=== PATIENT | male | born 1960 | race Caucasian/White ===

== ENCOUNTER → 2017-11-16 | Outpatient (CLI) | payer OTHER ==
[2017-11-16 17:59] LABS: BLOOD UREA NITROGEN 17 mg/dl (7-18); CALCIUM 9.2 mg/dl (8.5-10.1); CARBON DIOXIDE 28 mmol/L (21-32); CREATININE 1.09 mg/dl (0.60-1.40); GLUCOSE 93 mg/dl (70-99); POTASSIUM 3.8 mmol/L (3.5-5.1); SODIUM 139 mmol/L (136-145)
[2017-11-17 07:52] LABS: HEMOGLOBIN A1C 5.3 % (4.5-5.6)
== END | disposition home or self-care (01) ==
LOC: C.LABPVFM 14:49
PROVIDERS: ATTEND Family Medicine
DX: Z13.1 Encounter for screening for diabetes mellitus (principal)

== ENCOUNTER → 2018-07-03 | Day surgery (SDC) | payer OTHER ==
[2018-06-25 12:03] VITALS: Ht 193 cm; Wt 138.2 kg
[~2018-07-03] VITALS: Ht 193 cm; Wt 138.2 kg
[~2018-07-03] MED LIST: LIDOCAINE HCL 2% 2 ML VIAL (20MG/ML) ONE; MIDAZOLAM HCL 1 MG/ML 2ML VIAL ONE; ONDANSETRON INJ 2 MG/ML 2 ML VIAL ONE; PROPOFOL IV EMULSION 10 MG/ML 20 ML VIAL ONE; SODIUM CHLORIDE 0.9% 500ML 500 ML IV ONE
--- NOTE | 2018-07-03 13:13 | Endo History and Physical ---
History & Physical Date of Service: Jul 03, 2018. Chief Complaint: Screening Referring Physician: Ilana Burgess History of Present Illness 57 yo CM who presents for screening colonoscopy. Past Surgical History Hx Cardiac Surgery: No Hx Internal Defibrillator: No Hx Pacemaker: No Hx Abdominal Surgery: Yes (HERNIA REPAIR) Hx of Implantable Prosthesis: No Hx Post-Op Nausea and Vomiting: No Hx Cancer Surgery: No Hx Thoracic Surgery: No Hx Orthopedic: Yes (R TKA) Hx Urinary Tract Surgery: No Family History Polyp Social History Smoking Status: Former Smoker Hx Substance Use: No Hx Alcohol Use: Yes (A SIX PACK A MONTH) Allergies Coded Allergies: Aspirin (Unverified Allergy, Severe, ANAPHYLAXIS, 07/03/18) NSAIDs (Verified Allergy, Severe, ANAPHYLAXIS, 07/03/18) Current Medications Reported Home Medications Medications Dose Route/Sig Max Daily Dose Days Date Category Patient States No Home Meds (Miscellaneous) . 07/09/10 Reported Vital Signs Weight (Kilograms): 138.18 Height (Feet): 6 Height (Inches): 4 Physical Exam General Appearance: WD/WN, no apparent distress Respiratory/Chest: Auscultation: breath sounds normal Cardiovascular: Heart Auscultation: RRR Abdomen: Bowel Sounds: normal Inspection & Palpation: soft, non-distended, no tenderness, guarding & rebound Assessment and Plan Assessment: 57 yo CM who presents for screening colonoscopy. Plan: Proceed with colonoscopy.
--- NOTE | 2018-07-03 14:01 | Discharge Instructions ---
Endoscopy Patient Instructions Date / Procedure(s) Performed Jul 03, 2018. Colonoscopy Allergy Information Coded Allergies: Aspirin (Unverified Allergy, Severe, ANAPHYLAXIS, 07/03/18) NSAIDs (Verified Allergy, Severe, ANAPHYLAXIS, 07/03/18) Discharge Date / Findings Jul 03, 2018. Internal hemorrhoids Medication Instructions OK to resume all medications today as prescribed Reported Home Medications Medications Dose Route/Sig Max Daily Dose Days Date Category Patient States No Home Meds (Miscellaneous) . 07/09/10 Reported Provider Instructions Activity Restrictions - No exercising or heavy lifting for 24 hours. - Do not drink alcohol the day of the procedure. - Do not drive a car or operate machinery until the day after the procedure. - Do not make any important decisions or sign important papers in 24 hours after the procedure. Following Day: - Return to full activity which may include returning to work/school. Diet Start your diet with liquids and light foods (jello, soup, juice, toast). Then eat your usual diet if not nauseated. Treatment For Common After Affects For mild abdominal pain, bloating, or excessive gas: - Rest - Eat lightly - Lie on right side Follow-Up Information Follow-up with Dr. Burgess as scheduled Anesthesia Information What You Should Know You have had a procedure that required some medicine to reduce anxiety and discomfort. This treatment is called moderate sedation. After receiving the treatment, you may be sleepy, but you will be able to breathe on your own. The effects of the treatment may last for several hours. Follow these instructions along with Activity/Diet recommendations noted above: * Do NOT do anything where dizziness or clumsiness would be dangerous. * Rest quietly at home today, then you can be up and about tomorrow. * Have a responsible person stay with you the rest of today. * You may have had an I.V. today. If so, you may take the dressing off later today. Recommendations Call your doctor if: * Trouble breathing * Continuous vomiting for more than 24 hours * Temperature above 101 degrees * Severe abdominal pain or bloating * Pain not relieved by pain medicine ordered * There is increased drainage or redness from any incision * A large amount of rectal bleeding greater than 2-3 tablespoons. (If you had a polyp/s removed or have hemorrhoids, a small amount of blood - from the rectum is to be expected.) * You have any unanswered questions or concerns. IN THE EVENT OF A SERIOUS EMERGENCY, GO TO THE NEAREST EMERGENCY ROOM Your discharge instructions were prepared by provider Pavel Witt. Patient Instructions Signature Page Kike Edgar Patient (or Guardian) Signature/Date: I have read and understand the instructions given to me by my caregivers. Caregiver/RN/Doctor Signature/Date: The above-named patient and/or guardian has received patient instructions on this date. + Original Patient Signature Page (only) stays with chart. Please make copy for patient.
--- NOTE | 2018-07-03 14:06 | GI REPORT ---
Patient Name: Kike Edgar Procedure Date: 07/03/2018 1:42 PM Date of : 1960 Admit Type: Outpatient Age: 57 Gender: Male Attending MD: Pavel Witt DO Procedure: Colonoscopy Providers: Pavel Witt DO Referring MD: Partha Gonzales M.d. Indications: Screening for colorectal malignant neoplasm Medicines: Monitored Anesthesia Care Complications: No immediate complications. Estimated Blood Loss: Estimated blood loss: none. Procedure: Pre-Anesthesia Assessment: - Prior to the procedure, a History and Physical was performed, and patient medications and allergies were reviewed. The patient's tolerance of previous anesthesia was also reviewed. The risks and benefits of the procedure and the sedation options and risks were discussed with the patient. All questions were answered, and informed consent was obtained. Prior Anticoagulants: The patient has taken no previous anticoagulant or antiplatelet agents. ASA Grade Assessment: II - A patient with mild systemic disease. After reviewing the risks and benefits, the patient was deemed in satisfactory condition to undergo the procedure. After I obtained informed consent, the scope was passed under direct vision. Throughout the procedure, the patient's blood pressure, pulse, and oxygen saturations were monitored continuously. The scope was introduced through the anus and advanced to the terminal ileum. The colonoscopy was performed without difficulty. The patient tolerated the procedure well. The quality of the bowel preparation was good. The terminal ileum, ileocecal valve, appendiceal orifice, and rectum were photographed. Findings: The perianal and digital rectal examinations were normal. Non-bleeding internal hemorrhoids were found during retroflexion. The hemorrhoids were small. Impression: - Non-bleeding internal hemorrhoids. - No specimens collected. Recommendation: - Resume previous diet. - Continue present medications. - Repeat colonoscopy in 10 years for surveillance. - Return to primary care physician as previously scheduled. Pavel Witt DO 07/03/2018 2:06:19 PM This report has been signed electronically. Note Initiated On: 07/03/2018 1:42 PM Number of Addenda: 0 I attest to the content of the Intraoperative Record and orders documented therein, exceptions below {[id number]}
--- NOTE | 2018-07-03 14:14 | Anesthesiology Progress Note ---
Anesthesia Post Op Note Date & Time Jul 03, 2018 at 14:14 Vital Signs Pain Intensity: 0 Vital Signs Past 12 Hours Date Time Temp Pulse Resp B/P (MAP) Pulse Ox O2 Delivery O2 Flow Rate FiO2 07/03/18 14:02 36.5 68 16 110/62 (78) 96 Room Air 07/03/18 13:35 162/97 (118) 07/03/18 13:33 36.8 77 20 150/101 (117) 97 Room Air Notes Mental Status: alert / awake / arousable, participated in evaluation Pt Amnestic to Procedure: Yes Nausea / Vomiting: adequately controlled Pain: adequately controlled Airway Patency, RR, SpO2: stable & adequate BP & HR: stable & adequate Hydration State: stable & adequate Anesthetic Complications: no major complications apparent
[2018-07-03 14:31] VITALS: BP 122/81; PULSE 69; O2SAT 96
== END | disposition home or self-care (01) ==
LOC: C.GI 12:59
PROVIDERS: ATTEND Internal Medicine
DX: Z12.11 Encounter for screening for malignant neoplasm of colon (principal); M19.90 Unspecified osteoarthritis, unspecified site; K64.8 Other hemorrhoids; Z96.651 Presence of right artificial knee joint; Z87.891 Personal history of nicotine dependence; Z88.6 Allergy status to analgesic agent

== ENCOUNTER 2021-03-31 19:30 | Observation (INO) ==
[2021-03-31] MEDS ORDERED: SODIUM CHLORIDE 0.9% 1000ML 2,000 ML IV ONE (20:02)
[2021-03-31] MEDS ORDERED: ONDANSETRON INJ 2 MG/ML 2 ML VIAL IV STA (20:03)
[2021-03-31] MEDS ORDERED: FAMOTIDINE 20MG IV PUSH 20 MG/5 ML SYR IV STA (20:03)
[2021-03-31] MEDS ORDERED: ACETAMINOPHEN 1,000 MG/100 ML VIAL IV STA (20:03)
[2021-03-31 20:17] LABS: Basophils # (auto) 0.01 K/uL (0-0.2); Basophils % (auto) 0.1 %; Eosinophils # (auto) 0.03 K/uL (0-0.5); Eosinophils % (auto) 0.3 %; Hematocrit (blood only) 40.5 % (42-52); Hemoglobin 14.2 g/dL (14.0-18.0); Immature Granulocytes # (auto) 0.02 K/uL (0.00-0.02); Immature Granulocytes % (auto) 0.2 %; Lymphocytes # (auto) 0.37 K/uL (1.2-3.4); Lymphocytes % (auto) 4.2 %; Mean Corpuscular Hemoglobin 31.9 pg (25-34); Mean Corpuscular Hgb Conc 35.1 g/dL (32-36); Mean Platelet Volume 9.3 fL (7.4-10.4); Monocytes # (auto) 0.42 K/uL (0.11-0.59); Monocytes % (auto) 4.7 %; Neutrophils # (auto) 8.04 K/uL (1.4-6.5); Neutrophils % (auto) 90.5 %; Platelet Count 152 K/uL (130-400); RDW Coefficient of Variation 14.1 % (11.5-14.5); RDW Standard Deviation 47.2 fL (36.4-46.3); Red Blood Count 4.45 M/uL (4.7-6.1); White Blood Count 8.89 K/uL (4.8-10.8)
[2021-03-31 20:36] LABS: Alanine Aminotransferase 28 U/L (12-78); Albumin Level 3.9 gm/dl (3.4-5.0); Aspartate Aminotransferase 16 U/L (15-37); BUN Creatinine Ratio 17.4 (10-20); Bilirubin Direct 0.3 mg/dl (0-0.2); Blood Urea Nitrogen 20 mg/dl (7-18); Calcium 8.9 mg/dl (8.5-10.1); Carbon Dioxide 22 mmol/L (21-32); Chloride 105 mmol/L (98-107); Creatinine Clr Calc Pharmacy 109.3 ml/min; Est GFR (Non-African American) 70.8 ml/min; Glucose 134 mg/dl (70-99); Lipase 94 U/L (73-393); Potassium 4.2 mmol/L (3.5-5.1); Sodium 135 mmol/L (136-145)
--- NOTE | 2021-03-31 20:47 | Emergency Department Note ---
Impression & Plan Syncope, Bradycardia, Gastroenteritis, Hypophosphatemia ED Provider Note NAME: GILLIAN SCHWARZ AGE: 60 SEX: M ARRIVES VIA: Ambulance INFORMANT: Patient, ED PROVIDER(S): Alex Cunningham MD CHIEF COMPLAINT: Syncope PLAN: Disposition: Admit MEDICAL DECISION MAKING: The patient is a pleasant 60-year-old gentleman with a past medical history of hypertension who presents emergency department via EMS after having 2 syncopal episodes in the setting of his report of feeling nauseated with abdominal cramping when getting home from work today and had some mild loose stool and nausea and then began to feel lightheaded and passed out waking on the floor where he was able to get up and move himself to the couch but upon arrival of EMS he began to feel nauseated again and passed out sitting on the couch noted to have heart rate in the to the 30s that recovered after a minute or so and upon EMS sternal rub. Per EMS report the patient felt nauseated again en route and again had transient bradycardia into the 30s that resolved spontaneously. Prior today the patient denies any chest pain, shortness of breath, urinary symptoms. Patient denies any known COVID-19 exposures. On arrival the patient is fatigued/ill-appearing but no acute distress, afebrile stable vital signs. His O2 saturation was noted to be 89% upon arrival and was placed on 2 L nasal cannula. He appears clinically dry. He has no focal logic deficits. He has minor contusion to the occipital scalp without significant underlying hematoma. There is no bony crepitus. He has mild paraspinal muscle discomfort of the neck without any midline CTL spine tenderness to palpation or step-offs. Abdomen with generalized abdominal discomfort but no discrete tenderness. EKG without overt acute ischemia. WBC, hemoglobin and platelets within normal limits. Chemistry without metabolic acidosis. BUN 20, consistent with the patient's clinical dry appearance. Phosphorus 1.2 with repletion initiated. Electrolytes otherwise without significant abnormality. Total bilirubin 1.2 with direct bilirubin 0.3, nonspecific. LFTs otherwise unremarkable. Lipase is not elevated. Troponin negative/undetectable. COVID-19 PCR was negative. Per preliminary stat rad report: CT of the head, C-spine negative for acute traumatic process. CTA of the chest negative for dissection or acute process otherwise. CT of the abdomen and pelvis notes findings consistent with diar rheal illness. Otherwise no acute process. Upon reevaluation the patient did feel improved after IV fluid hydration with 2L NSS, Pepcid, Zofran. However, still feeling weak and blood pressure soft 9 0s/50s., Given the patient's repeat syncopal episodes which are likely vasovagal in the setting still being mildly symptomatic reasonable to admit the patient for continued IV fluid hydration and monitoring. The patient was agreement with this plan. Case was discussed with Dr. Valadez, [facility] hospitalist, who will evaluate the patient for admission. Triage Nursing notes reviewed and agree them. Prior medical records reviewed Vital Signs: reviewed and remarkable for low blood pressure. Differential diagnosis: Vasovagal event, dehydration, infection, hypoglycemia, electrolyte abnormalities, cardiac sources, intracerebral event, pulmonary embolism, seizure, toxicologic, neurologic, as well as other pathologies. ER treatment provided: See below. Diagnostics interpreted by me: ECG: Normal sinus rhythm, 71 bpm, no ectopy, no overt ST elevation or depression, QTC 473, QRS 108. Cardiac Monitoring: An order for continuous cardiac monitoring was placed and demonstrated normal sinus rhythm, 71 bpm, no ectopy. Laboratory studies: See below Imaging studies: See below [facility] Preliminary Findings Only See Final Report For Complete Findings CT HEAD: No acute intracranial process. Radiologist: Sandip Pringle M.D. Study ready at 21:46 and initial results transmitted at 22:05 -- Preliminary Findings Only See Final Report For Complete Findings CT C SPINE: No fracture Radiologist: Sandip Pringle M.D. Study ready at 21:47 and initial results transmitted at 22:06 -- Preliminary Findings Only See Final Report For Complete Findings CTA CHEST: No PE or aortic dissection. No acute pulmonary infiltrate. Mild dependent atelectasis. Suspected coronary atherosclerosis. Radiologist: Sandip Pringle M.D. Study ready at 21:53 and initial results transmitted at 22:25 -- Preliminary Findings Only See Final Report For Complete Findings CT ABDOMEN & PELVIS With Contrast: Liquid distal colonic contents suggesting diarrheal illness. No bowel obstruction or perforation. Unremarkable appendix. Moderately distended gallbladder. Layering density could reflect sludge or small stones. No pericholecystic inflammatory changes. No biliary ductal dilation. Multiple hepatic cyst and hypodensities that are too small to characterize. Nonspecific bilateral perinephric stranding. No hydronephrosis. Fat-containing umbilical and right inguinal hernias. Radiologist: Sandip Pringle M.D. Study ready at 21:57 and initial results transmitted at 22:27 Consultation(s): Case was discussed with Dr. Valadez, [facility] hospitalist, who will evaluate the patient for admission. HPI: The patient is a pleasant 60-year-old gentleman with a past medical history of hypertension who presents emergency department via EMS after having 2 syncopal episodes in the setting of his report of feeling nauseated with abdominal cramping when getting home from work today and had some mild loose stool and nausea and then began to feel lightheaded and passed out waking on the floor where he was able to get up and move himself to the couch but upon arrival of EMS he began to feel nauseated again and passed out sitting on the couch noted to have heart rate in the to the 30s that recovered after a minute or so and upon EMS sternal rub. Per EMS report the patient felt nauseated again in route and again had transient bradycardia into the 30s that resolved spontaneously. Prior today the patient denies any chest pain, shortness of breath, urinary symptoms. Patient denies any known COVID-19 exposures. ROS: See above HPI for pertinent positives & negatives. A total of 10 systems reviewed and were otherwise negative. PAST MEDICAL HISTORY:See Below PAST SURGICAL HISTORY:See Below FAMILY HISTORY:See Below SOCIAL HISTORY:See Below HOME MEDICATIONS:See Below ALLERGIES:See Below VITALS:See Below PHYSICAL EXAMINATION: GENERAL: Awake, alert, fatigued/ill-appearing, in no distress HENT: Normocephalic, 3cm occipital scalp contusion. Oropharynx with dry mucous membranes and otherwise unremarkable. EYES: Normal conjunctiva. Sclera non-icteric. EOMI. No nystamgus. PEARRL. NECK: Supple. No nuchal rigidity. FROM. No JVD. RESPIRATORY: Clear to auscultation. CARDIAC: Regular rate, normal rhythm. Extremities warm and well perfused. Pulses equal. ABDOMEN: Soft, non-distended. BS hyperactive. Generalized abdominal discomfort without discrete tenderness. No rebound or guarding. No masses. RECTAL: Deferred. MUSCULOSKELETAL: Chest examination reveals no tenderness. The back is symmetrical on inspection without obvious abnormality. There is no CVA tenderness to palpation. No joint edema. LOWER EXTREMITIES: Calves are equal size bilaterally and non-tender. No edema. No discoloration. NEURO: Normal sensorium. No sensory or motor deficits noted. 5/5 strength and SILT x 4 extremities. Cerebellar function intact including [id number], alternating palms, [id number]. SKIN: No rash or jaundice noted. PHYSICAL Critical Care: I have personally spent greater than 35 minutes of critical care time in the direct management of this patient. This includes bedside care, interpretation of diagnostic studies, and testing, discussion with consultants, patient, and family members, and other required patient management activities. This 35 minutes is in excess of all separately billable procedures. Alex Cunningham MD Past Med/Surg History Medical History Arthritis Hypertension Impaired fasting glucose Obesity Surgical History History of hernia repair History of torn meniscus of right knee Repair Family History Father Myocardial infarction Denies family history of Ovarian cancer Prostate cancer Breast cancer Colorectal cancer Social History Smoking Status: Former smoker Smoking End Date: 1996; Number of Years Since Quit: 20; Second Hand Exposure: No; Hx Alcohol Use: Yes Alcohol type: beer, wine and hard liquor Alcohol Intake Frequency: 2-4 x/Month Alcohol Intake Frequency Comment: One drink a week Hx Substance Use: No Preferred Language: [place] Communication Ability: Effective 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 Beliefs That Will Affect Care: None marital status: Current Living Situation: Spouse current occupational status: employed Feels Safe at Home: Yes Safety Concerns: Feels Safe At This Time caffeine: Yes Dental Care, Regularly: Yes Physical Activity Frequency: Other Physical Activity Frequency Comment: Occasional exercise Seatbelt Use: always Sunscreen Use: No Assistive Devices: Glasses Allergies Allergies Allergy/AdvReac Type Severity Reaction Status Date / Time aspirin Allergy Severe ANAPHYLAXIS Unverified 03/31/21 21:58 NSAIDS (Non-Steroidal Allergy Severe ANAPHYLAXIS Verified 03/31/21 21:58 Anti-Inflamma Home Meds Previous Rx's Medication Instructions Recorded lisinopril 10 mg tablet 10 mg PO DAILY #30 tab 02/04/21 Results & Data (ED) Vital Signs Vital Signs - 24 hr 03/31/21 19:37 03/31/21 19:44 03/31/21 19:47 Temperature 37.0 C Temperature Source Oral Pulse Rate 67 Pulse Rate from SpO2 Sensor Pulse Rhythm Regular Pulse Strength Normal Respiratory Rate 18 Respiratory Effort / Characteristics Non-Labored Respiratory Depth Normal Respiratory Pattern Regular Blood Pressure 103/64 Blood Pressure Mean 77 Blood Pressure Position Sitting Pulse Oximetry 98 84 L Oxygen Delivery Method Room Air Room Air Room Air Oxygen Flow Rate Sepsis Recent Fever Within 48 Hours No Sepsis New/Unexplained Change in Mental Status No Sepsis Action Taken by Nursing No Action Required 03/31/21 19:50 03/31/21 19:54 03/31/21 20:30 Temperature Temperature Source Pulse Rate 80 Pulse Rate from SpO2 Sensor 81 Pulse Rhythm Pulse Strength Respiratory Rate 23 Respiratory Effort / Characteristics Respiratory Depth Respiratory Pattern Blood Pressure 112/65 Blood Pressure Mean 80 Blood Pressure Position Pulse Oximetry 94 100 99 Oxygen Delivery Method Nasal Cannula Nasal Cannula Oxygen Flow Rate 2 2 Sepsis Recent Fever Within 48 Hours Sepsis New/Unexplained Change in Mental Status Sepsis Action Taken by Nursing 03/31/21 20:40 03/31/21 20:45 03/31/21 20:46 Temperature Temperature Source Pulse Rate 78 78 80 Pulse Rate from SpO2 Sensor 80 79 80 Pulse Rhythm Pulse Strength Respiratory Rate 24 18 18 Respiratory Effort / Characteristics Respiratory Depth Respiratory Pattern Blood Pressure 122/68 Blood Pressure Mean 86 Blood Pressure Position Pulse Oximetry 99 99 98 Oxygen Delivery Method Oxygen Flow Rate Sepsis Recent Fever Within 48 Hours Sepsis New/Unexplained Change in Mental Status Sepsis Action Taken by Nursing 03/31/21 21:00 03/31/21 21:01 03/31/21 21:15 Temperature Temperature Source Pulse Rate 73 73 Pulse Rate from SpO2 Sensor 74 73 Pulse Rhythm Pulse Strength Respiratory Rate 17 22 Respiratory Effort / Characteristics Respiratory Depth Respiratory Pattern Blood Pressure 112/69 106/65 Blood Pressure Mean 83 78 Blood Pressure Position Pulse Oximetry 100 100 Oxygen Delivery Method Oxygen Flow Rate Sepsis Recent Fever Within 48 Hours Sepsis New/Unexplained Change in Mental Status Sepsis Action Taken by Nursing 03/31/21 21:36 03/31/21 21:38 03/31/21 21:45 Temperature Temperature Source Pulse Rate 80 78 75 Pulse Rate from SpO2 Sensor 78 75 Pulse Rhythm Pulse Strength Respiratory Rate 17 Respiratory Effort / Characteristics Respiratory Depth Respiratory Pattern Blood Pressure 103/64 103/67 Blood Pressure Mean 77 79 Blood Pressure Position Pulse Oximetry 100 100 Oxygen Delivery Method Oxygen Flow Rate Sepsis Recent Fever Within 48 Hours Sepsis New/Unexplained Change in Mental Status Sepsis Action Taken by Nursing 03/31/21 22:00 03/31/21 22:01 03/31/21 22:15 Temperature Temperature Source Pulse Rate 74 71 76 Pulse Rate from SpO2 Sensor 74 72 75 Pulse Rhythm Pulse Strength Respiratory Rate 15 15 19 Respiratory Effort / Characteristics Respiratory Depth Respiratory Pattern Blood Pressure 108/67 113/68 Blood Pressure Mean 80 83 Blood Pressure Position Pulse Oximetry 99 99 98 Oxygen Delivery Method Oxygen Flow Rate Sepsis Recent Fever Within 48 Hours Sepsis New/Unexplained Change in Mental Status Sepsis Action Taken by Nursing 03/31/21 22:30 03/31/21 22:31 03/31/21 22:45 Temperature Temperature Source Pulse Rate 73 67 67 Pulse Rate from SpO2 Sensor 73 68 67 Pulse Rhythm Pulse Strength Respiratory Rate 18 17 18 Respiratory Effort / Characteristics Respiratory Depth Respiratory Pattern Blood Pressure 92/48 L Blood Pressure Mean 62 Blood Pressure Position Pulse Oximetry 98 98 98 Oxygen Delivery Method Oxygen Flow Rate Sepsis Recent Fever Within 48 Hours Sepsis New/Unexplained Change in Mental Status Sepsis Action Taken by Nursing 03/31/21 23:00 03/31/21 23:01 03/31/21 23:07 Temperature Temperature Source Pulse Rate 68 68 71 Pulse Rate from SpO2 Sensor 68 67 71 Pulse Rhythm Pulse Strength Respiratory Rate 15 17 19 Respiratory Effort / Characteristics Respiratory Depth Respiratory Pattern Blood Pressure 102/61 Blood Pressure Mean 74 Blood Pressure Position Pulse Oximetry 98 98 99 Oxygen Delivery Method Oxygen Flow Rate Sepsis Recent Fever Within 48 Hours Sepsis New/Unexplained Change in Mental Status Sepsis Action Taken by Nursing 03/31/21 23:08 03/31/21 23:31 04/01/21 00:00 Temperature Temperature Source Pulse Rate 72 65 72 Pulse Rate from SpO2 Sensor 72 65 72 Pulse Rhythm Pulse Strength Respiratory Rate 19 17 18 Respiratory Effort / Characteristics Respiratory Depth Respiratory Pattern Blood Pressure 104/62 Blood Pressure Mean 76 Blood Pressure Position Pulse Oximetry 99 98 96 Oxygen Delivery Method Oxygen Flow Rate Sepsis Recent Fever Within 48 Hours Sepsis New/Unexplained Change in Mental Status Sepsis Action Taken by Nursing 04/01/21 00:01 04/01/21 00:09 04/01/21 00:15 Temperature Temperature Source Pulse Rate 68 77 62 Pulse Rate from SpO2 Sensor 69 70 62 Pulse Rhythm Pulse Strength Respiratory Rate 19 20 19 Respiratory Effort / Characteristics Respiratory Depth Respiratory Pattern Blood Pressure 103/63 100/47 L Blood Pressure Mean 76 64 Blood Pressure Position Pulse Oximetry 98 96 98 Oxygen Delivery Method Oxygen Flow Rate Sepsis Recent Fever Within 48 Hours Sepsis New/Unexplained Change in Mental Status Sepsis Action Taken by Nursing 04/01/21 00:30 04/01/21 00:31 Temperature Temperature Source Pulse Rate 67 68 Pulse Rate from SpO2 Sensor 68 68 Pulse Rhythm Pulse Strength Respiratory Rate 15 12 Respiratory Effort / Characteristics Respiratory Depth Respiratory Pattern Blood Pressure 93/50 L Blood Pressure Mean 64 Blood Pressure Position Pulse Oximetry 99 100 Oxygen Delivery Method Oxygen Flow Rate Sepsis Recent Fever Within 48 Hours Sepsis New/Unexplained Change in Mental Status Sepsis Action Taken by Nursing Laboratory Data Attestation: I reviewed the patient's lab results. Result diagrams: 03/31/21 20:00 03/31/21 20:00 Lab Results 03/31/21 03/31/21 03/31/21 Range/Units 20:00 20:00 20:25 WBC 8.89 (4.8-10.8) K/uL RBC 4.45 L (4.7-6.1) M/uL Hgb 14.2 (14.0-18.0) g/dL Hct 40.5 L (42-52) % MCV 91.0 (80-100) fL MCH 31.9 (25-34) pg MCHC 35.1 (32-36) g/dL RDW Std Deviation 47.2 H (36.4-46.3) fL RDW Coeff of Larry 14.1 (11.5-14.5) % Plt Count 152 (130-400) K/uL MPV 9.3 (7.4-10.4) fL Immature Gran % (Auto) 0.2 % Neut % (Auto) 90.5 % Lymph % (Auto) 4.2 % Green % (Auto) 4.7 % Eos % (Auto) 0.3 % Baso % (Auto) 0.1 % Neut # (Auto) 8.04 H (1.4-6.5) K/uL Lymph # (Auto) 0.37 L (1.2-3.4) K/uL Green # (Auto) 0.42 (0.11-0.59) K/uL Eos # (Auto) 0.03 (0-0.5) K/uL Baso # (Auto) 0.01 (0-0.2) K/uL Immature Gran # (Auto) 0.02 (0.00-0.02) K/uL Sodium 135 L (136-145) mmol/L Potassium 4.2 (3.5-5.1) mmol/L Chloride 105 (98-107) mmol/L Carbon Dioxide 22 (21-32) mmol/L Anion Gap 8.0 (3-11) BUN 20 H (7-18) mg/dl Creatinine 1.13 (0.6-1.4) mg/dl Est Cr Clr Drug Dosing 109.3 ml/min Est GFR ( Amer) 82.0 ml/min Est GFR (Non-Af Amer) 70.8 ml/min BUN/Creatinine Ratio 17.4 (10-20) Glucose 134 H (70-99) mg/dl Calcium 8.9 (8.5-10.1) mg/dl Phosphorus 1.2 L* (2.5-4.9) mg/dl Magnesium 2.0 (1.8-2.4) mg/dl Total Bilirubin 1.2 H (0.2-1) mg/dl Direct Bilirubin 0.3 H (0-0.2) mg/dl AST 16 (15-37) U/L ALT 28 (12-78) U/L Alkaline Phosphatase 57 (45-117) U/L Troponin I < 0.015 (0-0.045) ng/ml Total Protein 7.2 (6.4-8.2) gm/dl Albumin 3.9 (3.4-5.0) gm/dl Globulin 3.3 (2.5-4.0) gm/dl Albumin/Globulin Ratio 1.2 (0.9-2) Lipase 94 (73-393) U/L TSH 2.580 (0.300-4.500) uIu/ml COVID-19 Eval Order Covid19 at [facility] SARS-CoV-2 (PCR) (Negative) 03/31/21 Range/Units 20:25 WBC (4.8-10.8) K/uL RBC (4.7-6.1) M/uL Hgb (14.0-18.0) g/dL Hct (42-52) % MCV (80-100) fL MCH (25-34) pg MCHC (32-36) g/dL RDW Std Deviation (36.4-46.3) fL RDW Coeff of Larry (11.5-14.5) % Plt Count (130-400) K/uL MPV (7.4-10.4) fL Immature Gran % (Auto) % Neut % (Auto) % Lymph % (Auto) % Green % (Auto) % Eos % (Auto) % Baso % (Auto) % Neut # (Auto) (1.4-6.5) K/uL Lymph # (Auto) (1.2-3.4) K/uL Green # (Auto) (0.11-0.59) K/uL Eos # (Auto) (0-0.5) K/uL Baso # (Auto) (0-0.2) K/uL Immature Gran # (Auto) (0.00-0.02) K/uL Sodium (136-145) mmol/L Potassium (3.5-5.1) mmol/L Chloride (98-107) mmol/L Carbon Dioxide (21-32) mmol/L Anion Gap (3-11) BUN (7-18) mg/dl Creatinine (0.6-1.4) mg/dl Est Cr Clr Drug Dosing ml/min Est GFR ( Amer) ml/min Est GFR (Non-Af Amer) ml/min BUN/Creatinine Ratio (10-20) Glucose (70-99) mg/dl Calcium (8.5-10.1) mg/dl Phosphorus (2.5-4.9) mg/dl Magnesium (1.8-2.4) mg/dl Total Bilirubin (0.2-1) mg/dl Direct Bilirubin (0-0.2) mg/dl AST (15-37) U/L ALT (12-78) U/L Alkaline Phosphatase (45-117) U/L Troponin I (0-0.045) ng/ml Total Protein (6.4-8.2) gm/dl Albumin (3.4-5.0) gm/dl Globulin (2.5-4.0) gm/dl Albumin/Globulin Ratio (0.9-2) Lipase (73-393) U/L TSH (0.300-4.500) uIu/ml COVID-19 Eval Order SARS-CoV-2 (PCR) NEGATIVE (Negative) Administered Medications Potassium Phosphate 30 mmol/ (Sodium Chloride) 510 mls @ 100 mls/hr IV ONE ONE Stop: 04/01/21 06:35 Last Admin: 04/01/21 00:59 Dose: 100 mls/hr Documented by: [id number] Lactated Ringer's (Lr) 1,000 mls @ 250 mls/hr IV .Q4H MANISH Stop: 04/01/21 10:05 Last Admin: 04/01/21 03:05 Dose: 250 mls/hr Documented by: [id number] Discontinued Medications Sodium Chloride (Nss 1000ml) 2,000 mls @ 999 mls/hr IV .Q2H1M ONE Stop: 03/31/21 22:02 Last Infusion: 03/31/21 22:16 Dose: 0 mls/hr Documented by: [id number] Admin: 03/31/21 20:15 Dose: 999 mls/hr Documented by: [id number] Famotidine (Pepcid 20mg Iv Push) 20 mg in 5 mls @ 2.5 mls/min IV NOW STA Stop: 03/31/21 20:04 Last Admin: 03/31/21 20:15 Dose: 2.5 mls/min Documented by: [id number] Acetaminophen (Ofirmev) 1,000 mg in 100 mls @ 400 mls/hr IV NOW STA Stop: 03/31/21 20:17 Last Infusion: 03/31/21 20:29 Dose: 0 mls/hr Documented by: [id number] Admin: 03/31/21 20:14 Dose: 400 mls/hr Documented by: [id number] Potassium Phosphate 9 mmol/ (Sodium Chloride) 253 mls @ 150 mls/hr IV ONE ONE Stop: 04/01/21 00:41 Last Infusion: 04/01/21 00:59 Dose: 0 mls/hr Documented by: [id number] Admin: 03/31/21 23:03 Dose: 150 mls/hr Documented by: [id number] Lactated Ringer's (Lr) 1,000 mls @ 125 mls/hr IV .Q8H MANISH Stop: 05/01/21 00:14 Last Admin: 04/01/21 02:07 Dose: Not Given Documented by: [id number] Ondansetron HCl (Ondansetron Inj 2 Mg/Ml 2 Ml Vial) 4 mg IV NOW STA Stop: 03/31/21 20:04 Last Admin: 03/31/21 20:15 Dose: 4 mg Documented by: [id number] Discharge Plan Visit Data Chief Complaint: Syncope Stated Complaint: SYNCOPE ED Provider: Alex Cunningham Discharge Problem: Syncope, Bradycardia, Gastroenteritis, Hypophosphatemia Patient Disposition: Admitted As Inpatient Discharge Instructions Interventions: ED Discharge Assessment Last Done: 04/01/21 01:42 Discharge Problem: Syncope Qualifiers: Syncope type: vasovagal syncope Qualified Code(s): R55 - Syncope and collapse
[2021-03-31 20:58] LABS: Albumin Globulin Ratio 1.2 (0.9-2); Alkaline Phosphatase 57 U/L (45-117); Bilirubin,Total 1.2 mg/dl (0.2-1); Globulin 3.3 gm/dl (2.5-4.0); Phosphorus 1.2 mg/dl (2.5-4.9); Total Protein 7.2 gm/dl (6.4-8.2); Troponin I < 0.015 ng/ml (0-0.045)
[2021-03-31] MEDS ORDERED: POTASSIUM PHOS 3 MMOL/1 ML INFUSION IV STA (22:11)
[2021-03-31] MEDS ORDERED: POTASSIUM PHOSPHATE 9 MMOL in SODIUM CHLORIDE 0.9% 250 ML IV ONE (23:00)
[2021-04-01] MEDS ORDERED: LACTATED RINGER'S 1,000 ML IV SCH (00:15)
[2021-04-01] MEDS ORDERED: POTASSIUM PHOS 3 MMOL/1 ML INFUSION IV STA (00:41)
[2021-04-01] MEDS ORDERED: POTASSIUM PHOSPHATE 30 MMOL in SODIUM CHLORIDE 0.9% 500 ML IV ONE (01:30)
[2021-04-01] MEDS ORDERED: ONDANSETRON INJ 2 MG/ML 2 ML VIAL IV PRN (02:06)
[2021-04-01] MEDS ORDERED: MAGNESIUM HYDROXIDE SUSP 30 ML UDC PO PRN (02:06)
[2021-04-01] MEDS ORDERED: ACETAMINOPHEN 325 MG TAB PO PRN (02:06)
[2021-04-01] MEDS ORDERED: ALUMINUM/MAGNESIUM SUSP 30 ML UDC PO PRN (02:06)
--- NOTE | 2021-04-01 02:07 | History & Physical Report ---
Date of Service April 01, 2021 Assessment & Plan (1) Vasovagal syncope: Secondary to abdominal cramping diarrhea and dehydration Zofran 4 mg IV every 6 hours as needed Present on Admission?: Yes (2) Hypertension: Hold lisinopril Present on Admission?: Yes (3) Diarrhea: Patient describes multiple family members with similar diarrheal episodes, but he seems to have been hit harder than the other members Present on Admission?: Yes (4) Dehydration: Received 2 L of normal saline in the ED. Place on LR at 250 mils per hour x2 L Present on Admission?: Yes (5) Hypophosphatemia: Replace IV and then recheck in a.m. Present on Admission?: Yes History of Present Illness Chief Complaint: The patient presents to the emergency department with complaint of diarrheal illness, followed by 2 episodes of syncope while at home, after returning from work. Primary Care Provider: Ilana Burgess MD The patient is a 60-year-old male with a past medical history including arthr itis, hypertension, vitamin D deficiency, varicose vein of leg and morbid obesity. He reports that he went to work this morning without event, but did develop fatigue while at work, and when he returned home did have 2 diarrheal bowel movements. Shortly after that he had a syncopal episode, and his called EMS, and then had a second episode of syncope while EMS was present. During a witnessed episode by EMS, he reportedly briefly had a heart rate in the upper 30s Allergies Allergy/AdvReac Type Severity Reaction Status Date / Time aspirin Allergy Severe ANAPHYLAXIS Unverified 03/31/21 21:58 NSAIDS (Non-Steroidal Allergy Severe ANAPHYLAXIS Verified 03/31/21 21:58 Anti-Inflamma Home Medications Medication Instructions Recorded Confirmed Type lisinopril 10 mg tablet 10 mg PO DAILY #30 tab 02/04/21 03/31/21 Rx Past Med/Surg History Medical History Arthritis Hypertension Impaired fasting glucose Obesity Surgical History History of hernia repair History of torn meniscus of right knee Repair Family History Father Myocardial infarction Denies family history of Ovarian cancer Prostate cancer Breast cancer Colorectal cancer Social History Smoking Status: Former smoker Number of Years Since Quit: 20; Second Hand Exposure: No; Hx Alcohol Use: Yes Alcohol type: beer and hard liquor Alcohol Intake Frequency: 2-4 x/Month Alcohol Intake Frequency Comment: One drink a week Hx Substance Use: No marital status: Current Living Situation: Spouse and Family current occupational status: employed Feels Safe at Home: Yes caffeine: Yes Dental Care, Regularly: Yes Physical Activity Frequency: Other Physical Activity Frequency Comment: Occasional exercise Seatbelt Use: always Sunscreen Use: No Review of Systems Review of Systems: the patient denies chest pain, palpitations, shortness of breath, dyspnea on exertion, cough, lower extremity swelling, sore throat, fevers, chills, sweats, vomiting, blood in urine or stool, dysuria, urinary frequency or urgency, lightheadedness, dizziness, headache, rash, abnormal bruising or bleeding, imbalance, focal or generalized weakness, numbness or tingling in arms or legs, generalized arthralgias or myalgias, back or neck pain, or night sweats. The review of systems is otherwise negative other than for that already noted above, and at least 10 systems have been reviewed. Physical Exam Physical Exam: The patient is awake, alert and oriented 3, well developed and well nourished, normocephalic and atraumatic, lying in bed and in no acute distress. HEENT--PERRL, EOMI, mucous membranes and oropharynx dry. Neck--supple. No JVD. No bruits. Thyroid normal, trachea midline, no adenopathy. Heart--normal S1 and S2. No murmurs, rubs or gallops. Lungs--clear bilaterally, no respiratory distress, no accessory muscle use. Abdomen--normal bowel sounds and soft. Nontender. Nondistended. Morbidly obese Extremities--no cyanosis or clubbing. No edema. Dermatologic--normal skin turgor, normal color, no abnormal lymph nodes, no rash. Neurologic--cranial nerves II through XII grossly intact. Rheumatologic--normal range of motion. Psychiatric--normal affect. Results & Data Results & Data ([facility]) Vital Signs (Past 12 Hours) Vital Signs Temp Pulse Resp BP Pulse Ox 04/01/21 01:15 72 16 105/63 100 04/01/21 01:01 71 18 98 04/01/21 01:00 70 18 108/63 98 04/01/21 00:46 74 19 96 04/01/21 00:45 71 22 109/69 94 04/01/21 00:31 68 12 100 04/01/21 00:30 67 15 93/50 L 99 04/01/21 00:15 62 19 100/47 L 98 04/01/21 00:09 77 20 103/63 96 04/01/21 00:01 68 19 98 04/01/21 00:00 72 18 104/62 96 03/31/21 23:31 65 17 98 03/31/21 23:08 72 19 99 03/31/21 23:07 71 19 102/61 99 03/31/21 23:01 68 17 98 03/31/21 23:00 68 15 98 03/31/21 22:45 67 18 98 03/31/21 22:31 67 17 92/48 L 98 03/31/21 22:30 73 18 98 03/31/21 22:15 76 19 113/68 98 03/31/21 22:01 71 15 99 03/31/21 22:00 74 15 108/67 99 03/31/21 21:45 75 17 103/67 100 03/31/21 21:38 78 103/64 100 03/31/21 21:36 80 03/31/21 21:15 106/65 03/31/21 21:01 73 22 100 03/31/21 21:00 73 17 112/69 100 03/31/21 20:46 80 18 98 03/31/21 20:45 78 18 122/68 99 03/31/21 20:40 78 24 99 03/31/21 20:30 80 23 112/65 99 03/31/21 19:54 100 03/31/21 19:50 94 03/31/21 19:47 84 L 03/31/21 19:37 98.6 F 67 18 103/64 98 Laboratory Results Laboratory Results WBC 8.89 K/uL (4.8-10.8) 03/31/21 20:00 RBC 4.45 M/uL (4.7-6.1) L 03/31/21 20:00 Hgb 14.2 g/dL (14.0-18.0) 03/31/21 20:00 Hct 40.5 % (42-52) L 03/31/21 20:00 MCV 91.0 fL (80-100) 03/31/21 20:00 MCH 31.9 pg (25-34) 03/31/21 20:00 MCHC 35.1 g/dL (32-36) 03/31/21 20:00 RDW Std Deviation 47.2 fL (36.4-46.3) H 03/31/21 20:00 RDW Coeff of Larry 14.1 % (11.5-14.5) 03/31/21 20:00 Plt Count 152 K/uL (130-400) 03/31/21 20:00 MPV 9.3 fL (7.4-10.4) 03/31/21 20:00 Immature Gran % (Auto) 0.2 % 03/31/21 20:00 Neut % (Auto) 90.5 % 03/31/21 20:00 Lymph % (Auto) 4.2 % 03/31/21 20:00 [place] % (Auto) 4.7 % 03/31/21 20:00 Eos % (Auto) 0.3 % 03/31/21 20:00 Baso % (Auto) 0.1 % 03/31/21 20:00 Neut # (Auto) 8.04 K/uL (1.4-6.5) H 03/31/21 20:00 Lymph # (Auto) 0.37 K/uL (1.2-3.4) L 03/31/21 20:00 [place] # (Auto) 0.42 K/uL (0.11-0.59) 03/31/21 20:00 Eos # (Auto) 0.03 K/uL (0-0.5) 03/31/21 20:00 Baso # (Auto) 0.01 K/uL (0-0.2) 03/31/21 20:00 Immature Gran # (Auto) 0.02 K/uL (0.00-0.02) 03/31/21 20:00 Sodium 135 mmol/L (136-145) L 03/31/21 20:00 Potassium 4.2 mmol/L (3.5-5.1) 03/31/21 20:00 Chloride 105 mmol/L (98-107) 03/31/21 20:00 Carbon Dioxide 22 mmol/L (21-32) 03/31/21 20:00 Anion Gap 8.0 (3-11) 03/31/21 20:00 BUN 20 mg/dl (7-18) H 03/31/21 20:00 Creatinine 1.13 mg/dl (0.6-1.4) 03/31/21 20:00 Est Cr Clr Drug Dosing 109.3 ml/min 03/31/21 20:00 Est GFR ( Amer) 82.0 ml/min 03/31/21 20:00 Est GFR (Non-Af Amer) 70.8 ml/min 03/31/21 20:00 BUN/Creatinine Ratio 17.4 (10-20) 03/31/21 20:00 Glucose 134 mg/dl (70-99) H 03/31/21 20:00 Calcium 8.9 mg/dl (8.5-10.1) 03/31/21 20:00 Phosphorus 1.2 mg/dl (2.5-4.9) L* 03/31/21 20:00 Magnesium 2.0 mg/dl (1.8-2.4) 03/31/21 20:00 Total Bilirubin 1.2 mg/dl (0.2-1) H 03/31/21 20:00 Direct Bilirubin 0.3 mg/dl (0-0.2) H 03/31/21 20:00 AST 16 U/L (15-37) 03/31/21 20:00 ALT 28 U/L (12-78) 03/31/21 20:00 Alkaline Phosphatase 57 U/L (45-117) 03/31/21 20:00 Troponin I < 0.015 ng/ml (0-0.045) 03/31/21 20:00 Total Protein 7.2 gm/dl (6.4-8.2) 03/31/21 20:00 Albumin 3.9 gm/dl (3.4-5.0) 03/31/21 20:00 Globulin 3.3 gm/dl (2.5-4.0) 03/31/21 20:00 Albumin/Globulin Ratio 1.2 (0.9-2) 03/31/21 20:00 Lipase 94 U/L (73-393) 03/31/21 20:00 TSH 2.580 uIu/ml (0.300-4.500) 03/31/21 20:00 COVID-19 Eval Order Covid19 at [facility] 03/31/21 20:25 SARS-CoV-2 (PCR) NEGATIVE (Negative) 03/31/21 20:25 Diagnostic Findings [facility] Patient: GILLIAN SCHWARZ (Male) : 62 Status: ER Date: 03/31/21 21:43 Room #: History: syncope hit head Slices: 75 Priors: Tech: Facundo Rivero @ [phone] Exams: CT HEAD Contrast: Accession Numbers: [id number] Preliminary Findings Only See Final Report For Complete Findings CT HEAD: No acute intracranial process. Radiologist: Sandip Pringle M.D. Study ready at 21:46 and initial results transmitted at 22:05 *This report constitutes a preliminary interpretation only. Non-acute findings felt to be unrelated to the clinical presentation may not be discussed in this report. The study will be interpreted and a final report will be generated by the local Radiologist the following shift. To reach the hospital radiology department call [phone]. If a discrepancy is found between the preliminary and final interpretations of this study, please notify us via our Client Portal at [email or web address], under [email or web address] [email or web address].You can also fax this report with a description of the discrepancy, or include the final report, to our daytime fax number [phone].If faxing, please indicate the severity of discrepancy using one of the following categories: [ ] 1 - Agree/Informational [ ] 2 - Unlikely to Affect Management [ ] 3 - Possible Eventual Change of Management [ ] 4 - Probable Immediate Change of Management For all other patient related information, please fax us at [phone]. [id number] [facility] Patient: GILLIAN SCHWARZ (Male) : 62 Status: ER Date: 03/31/21 21:44 Room #: History: fall injury Slices: 864 Priors: Tech: Facundo Rivero @ [phone] Exams: CT C SPINE Contrast: Accession Numbers: [id number] Preliminary Findings Only See Final Report For Complete Findings CT C SPINE: No fracture Radiologist: Sandip Pringle M.D. Study ready at 21:47 and initial results transmitted at 22:06 *This report constitutes a preliminary interpretation only. Non-acute findings felt to be unrelated to the clinical presentation may not be discussed in this report. The study will be interpreted and a final report will be generated by the local Radiologist the following shift. To reach the hospital radiology department call [phone]. If a discrepancy is found between the preliminary and final interpretations of this study, please notify us via our Client Portal at [email or web address], [email or web address] [email or web address].You can also fax this report with a description of the discrepancy, or include the final report, to our daytime fax number [phone].If faxing, please indicate the severity of discrepancy using one of the following categories: [ ] 1 - Agree/Informational [ ] 2 - Unlikely to Affect Management [ ] 3 - Possible Eventual Change of Management [ ] 4 - Probable Immediate Change of Management For all other patient related information, please fax us at [phone]. [id number] [facility] Patient: GILLIAN SCHWARZ (Male) : 62 Status: ER Date: 03/31/21 21:48 Room #: History: hypoxia Slices: 773 Priors: Tech: Facundo Rivero @ [phone] Exams: CTA CHEST Contrast: IV Amt: 118 ml optiray Accession Numbers: [id number] Preliminary Findings Only See Final Report For Complete Findings CTA CHEST: No PE or aortic dissection. No acute pulmonary infiltrate. Mild dependent atelectasis. Suspected coronary atherosclerosis. Radiologist: Sandip Pringle M.D. Study ready at 21:53 and initial results transmitted at 22:25 *This report constitutes a preliminary interpretation only. Non-acute findings felt to be unrelated to the clinical presentation may not be discussed in this report. The study will be interpreted and a final report will be generated by the local Radiologist the following shift. To reach the hospital radiology department call [phone]. If a discrepancy is found between the preliminary and final interpretations of this study, please notify us via our Client Portal at [email or web address], under [email or web address] [email or web address].You can also fax this report with a description of the discrepancy, or include the final report, to our daytime fax number [phone].If faxing, please indicate the severity of discrepancy using one of the following categories: [ ] 1 - Agree/Informational [ ] 2 - Unlikely to Affect Management [ ] 3 - Possible Eventual Change of Management [ ] 4 - Probable Immediate Change of Management For all other patient related information, please fax us at [phone]. [id number] [facility] Patient: GILLIAN SCHWARZ (Male) : 62 Status: ER Date: 03/31/21 21:54 Room #: History: abd pain n/v appen pres Slices: 853 Priors: Tech: Facundo Rivero @ [phone] Exams: CT ABDOMEN & PELVIS With Contrast Contrast: IV Amt: 118 ml optiray Accession Numbers: [id number] Preliminary Findings Only See Final Report For Complete Findings CT ABDOMEN & PELVIS With Contrast: Liquid distal colonic contents suggesting diarrheal illness. No bowel obstruction or perforation. Unremarkable appendix. Moderately distended gallbladder. Layering density could reflect sludge or small stones. No pericholecystic inflammatory changes. No biliary ductal dilation. Multiple hepatic cyst and hypodensities that are too small to characterize. Nonspecific bilateral perinephric stranding. No hydronephrosis. Fat-containing umbilical and right inguinal hernias. Radiologist: Sandip Pringle M.D. Study ready at 21:57 and initial results transmitted at 22:27 *This report constitutes a preliminary interpretation only. Non-acute findings felt to be unrelated to the clinical presentation may not be discussed in this report. The study will be interpreted and a final report will be generated by the local Radiologist the following shift. To reach the hospital radiology department call [phone]. If a discrepancy is found between the preliminary and final interpretations of this study, please notify us via our Client Portal at [email or web address], [email or web address].You can also fax this report with a description of the discrepancy, or include the final report, to our daytime fax number [phone].If faxing, please indicate the severity of discrepancy using one of the following categories: [ ] 1 - Agree/Informational [ ] 2 - Unlikely to Affect Management [ ] 3 - Possible Eventual Change of Management [ ] 4 - Probable Immediate Change of Management For all other patient related information, please fax us at [phone]. [id number] Code Status & VTE Plan Code Status Full code VTE Prophylaxis Plan VTE Prophylaxis will be ordered: Yes PG Care Time/CCT Total # of Minutes Spent Total Time Spent with Patient: Total time spent is greater than 50% in coordination of care (as documented) at patient's floor/unit and/or counseling patient: Coding Level of Care Code 05956 OBS Care - Level 3 Diagnoses Vasovagal syncope R55 Hypertension I10 Diarrhea R19.7 Dehydration E86.0 Hypophosphatemia E83.39
[2021-04-01] MEDS: LACTATED RINGER'S 1,000 ML IV SCH ×2 (03:05→08:25)
[2021-04-01 05:02] LABS: Appearance Urine Clear (Clear); Bilirubin Urine Negative (Negative); Blood Urine Negative (Negative); Color Urine Yellow; Glucose Urine UA Negative (Negative); Ketones Urine Negative (Negative); Leukocyte Esterase Urine Negative (Negative); Nitrite Urine Negative (Negative); Protein Urine Negative (Negative); Specific Gravity Urine 1.026 (1.000-1.030); Urobilinogen Urine Negative (Negative); pH Urine 5.5 (4.5-7.5)
[2021-04-01 06:02] LABS: Hematocrit (blood only) 40.8 % (42-52); Hemoglobin 14.2 g/dL (14.0-18.0); Lymphocytes # (auto) 0.31 K/uL (1.2-3.4); Lymphocytes % (auto) 5.2 %; Mean Corpuscular Hemoglobin 32.4 pg (25-34); Mean Corpuscular Hgb Conc 34.8 g/dL (32-36); Mean Corpuscular Volume 93.2 fL (80-100); Mean Platelet Volume 9.3 fL (7.4-10.4); Monocytes # (auto) 0.25 K/uL (0.11-0.59); Monocytes % (auto) 4.2 %; Neutrophils # (auto) 5.41 K/uL (1.4-6.5); Neutrophils % (auto) 90.6 %; Platelet Count 168 K/uL (130-400); RDW Coefficient of Variation 14.2 % (11.5-14.5); RDW Standard Deviation 48.2 fL (36.4-46.3); Red Blood Count 4.38 M/uL (4.7-6.1); White Blood Count 5.97 K/uL (4.8-10.8)
[2021-04-01 06:33] LABS: Albumin Level 3.6 gm/dl (3.4-5.0); BUN Creatinine Ratio 16.3 (10-20); Calcium 8.1 mg/dl (8.5-10.1); Creatinine Clr Calc Pharmacy 132.1 ml/min; Est GFR (African American) 106.5 ml/min; Est GFR (Non-African American) 91.9 ml/min; Potassium 4.2 mmol/L (3.5-5.1)
[2021-04-01 06:44] LABS: Albumin Globulin Ratio 1.2 (0.9-2); Bilirubin,Total 0.7 mg/dl (0.2-1); Globulin 3.1 gm/dl (2.5-4.0); Phosphorus 4.2 mg/dl (2.5-4.9); Total Protein 6.7 gm/dl (6.4-8.2)
--- NOTE | 2021-04-01 07:08 | CT Scan Report ---
CT SCAN OF THE BRAIN WITHOUT IV CONTRAST CLINICAL HISTORY: Syncope. Headache. COMPARISON STUDY: No priors. TECHNIQUE: Unenhanced axial CT scan of the brain is performed from the vertex to the skull base. A d ose lowering technique was utilized adhering to the principles of ALARA. There is no hemorrhage, mass effect, or evidence of acute territorial ischemia by CT criteria. FINDI NGS: Brain parenchyma: The brain parenchyma is normal in appearance. There is no hemorrhage, mass effect, or evidence of acute territorial ischemia by CT criteria. Abdalla-white matter differentiation is preser bo. No extra-axial fluid collection is seen. Ventricles, sulci, cisterns: Normal in configuration. Intracranial vasculature: The visualized intracranial vasculature at the skull base is normal in appe arance. Calvarium: Unremarkable. Sinuses and mastoids: A 1.3 cm retention cyst is noted in the left maxillary antrum. The paranasal si nuses are otherwise clear. The mastoid air cells are well pneumatized. Orbits: The bony orbits are grossly intact. IMPRESSION: There is no hemorrhage, mass effect, or evidence of acute territorial ischemia by CT yasir dorsey. ACT 112: Negative or not required by law. Electronically signed by: Sg Hayes M.D. 04/01/2021 7:07 AM
--- NOTE | 2021-04-01 07:24 | CT Scan Report ---
CT OF THE CERVICAL SPINE CLINICAL HISTORY: pain fall COMPARISON STUDY: No previous studies for comparison. CT DOSE: TECHNIQUE: CT scan of the cervical spine was performed from the skull base to the thoracic inlet. Cici ges are reviewed in the axial, sagittal, and coronal planes. IV contrast was not administered for thi s examination. A dose lowering technique was utilized adhering to the principles of ALARA. FINDINGS: The visualized portions of the lung apices reveal no evidence of pneumothorax. The prevertebral soft tissues are normal. No fractures or subluxations are visualized. Evaluation of the lower cervical spine is limited due to beam hardening artifact. There are multilevel degenerative changes C2-C3: Intervertebral disc space is preserved. Central canal and bilateral neural foramina are patent . C3-C4: Intervertebral disc spaces preserved. Mild diffuse bulge of the disc is seen probably associat ed with minimal stenosis of the central canal. Bilateral neural foramina are patent. C4-C5: Mild narrowing of intervertebral disc space is seen and associated with posterior osteophytes possibly mild central canal stenosis. Bilateral neural foramina are patent. C5-C6: Intervertebral disc space narrowing is seen with posterior and anterior osteophytes as well as subchondral sclerosis. Mild stenosis of the central canal. Bilateral neuroforamina are patent. C6-C7: Intervertebral disc space is preserved. Osseous portion of the central canal is patent. Mild h ypertrophic changes of facet joints are seen. Overall evaluation is limited due to beam hardening art ifact. Bilateral neuroforamina are patent. C7-T1: Intervertebral disc space is poorly seen on the sagittal reconstruction. Osseous central canal and bilateral neural foramina are patent. IMPRESSION: 1. No acute fracture or traumatic malalignment. 2. Multilevel degenerative changes as detailed above. 3. Limited study due to beam hardening artifact. ACT 112: Negative or not required by law. The above report was generated using voice recognition software. It may contain grammatical, syntax o r spelling errors. Electronically signed by: Bonita Katz DO 04/01/2021 7:23 AM
--- NOTE | 2021-04-01 07:39 | CT Scan Report ---
CT abd pelvis IV con only CLINICAL HISTORY: pain, n/v COMPARISON STUDY: None. TECHNIQUE: A dose lowering technique was utilized adhering to the principles of ALARA. CT DOSE: FINDINGS: Lower chest: Mild atelectasis/scarring at the dependent portions of bilateral lower lobes. Liver: Normal in size. Innumerable hypoattenuating lesions are seen throughout liver parenchyma, larg est is measured at 2.8 cm and seen at the subdiaphragmatic aspect of the right lobe (series 10 image 99). No intrahepatic biliary dilatation demonstrated. Gallbladder: Unremarkable. Spleen: Normal in size and attenuation. Pancreas: Unremarkable. Adrenal glands: Unremarkable. Kidneys: No hydronephrosis or nephrolithiasis seen. Symmetric parenchymal enhancement is seen. 1.1 cm hypoattenuating lesion is seen within the right renal parenchyma and could represent small cyst. Bowel: The small bowel and colon are normal in course and caliber. Small hiatal hernia is seen. Sigmo id colon and rectum are fluid-filled which could be seen in diarrheal states. Appendix is nondilated. Peritoneum: There is no intraperitoneal free air or abdominal ascites. Vasculature: The abdominal aorta is normal in course and caliber. Adenopathy: None. Pelvic viscera: The bladder, and pelvic viscera are unremarkable. There is small fat-containing right inguinal hernia. Skeletal structures: Multilevel degenerative changes of the spine. There is partial fusion of anterio r portion of bilateral sacroiliac joints. IMPRESSION: 1. Distal large bowel is fluid-filled which could be seen in diarrheal state. No evidence of acute i nflammatory findings. Appendix is not dilated. 2. Hiatal hernia. 3. Innumerable hypoattenuating lesions throughout liver parenchyma, statistically most likely repres ent cysts or hemangioma. Please correlate above-mentioned findings was prior history. 4. Partial fusion of anterior bilateral sacroiliac joints. ACT 112: Negative or not required by law. The above report was generated using voice recognition software. It may contain grammatical, syntax o r spelling errors. Electronically signed by: Bonita Katz DO 04/01/2021 7:37 AM
--- NOTE | 2021-04-01 07:50 | CT Scan Report ---
CT ANGIOGRAM OF THE CHEST CLINICAL HISTORY: Syncope. Hypoxia. COMPARISON STUDY: No priors. TECHNIQUE: Following the IV administration of 118 cc of Optiray 350, CT angiogram of the chest was pe rformed from the upper abdomen to the thoracic inlet utilizing the pulmonary embolus protocol. Images are reviewed in the axial, sagittal, and coronal planes. 3-D MIPS images are created and assessed. I V contrast was administered without complication. A dose lowering technique was utilized adhering to the principles of ALARA. The examination is degraded by motion artifact. CT DOSE: 3997.87 mGy.cm FINDINGS: Thyroid: Imaged portions of the thyroid gland are normal in size and attenuation. Thoracic aorta: The thoracic aorta is normal in caliber and demonstrates standard 3-vessel arch anato my. No dissection is seen. Pulmonary vasculature: The pulmonary trunk is normal in caliber. There are no filling defects identif ied in main, lobar, or segmental pulmonary branches to suggest pulmonary embolus. Heart: The heart is enlarged and without pericardial effusion. There are scattered coronary artery ca lcifications. Lungs and pleural spaces: Evaluation of the lung parenchyma is degraded by motion artifact. There is no airspace consolidation or pleural effusion. Dependent atelectasis is seen bilaterally. The trachea and central airways are clear. Mediastinum: There is no mediastinal lymphadenopathy. Joy: Clear. Axillae: There is no axillary lymphadenopathy. Upper abdomen: There is a small hiatal hernia. The liver appears steatotic. Scattered hepatic cysts m easure up to 2.7 cm. Skeletal structures: No lytic or blastic bony lesions are seen. IMPRESSION: 1. There is no evidence of pulmonary embolus in the main, lobar, or segmental pulmonary arteries. 2. There is no airspace consolidation or pleural effusion. 3. Mild cardiomegaly. 4. Additional findings as above. ACT 112: Negative or not required by law. Electronically signed by: Sg Hayes M.D. 04/01/2021 7:48 AM
[2021-04-01] MEDS ORDERED: PERFLUTREN LIPID MICROSPHERE (DEFINITY) IV ONE (11:05)
--- NOTE | 2021-04-01 11:31 | Electrocardiogram Report ---
Test Reason : Blood Pressure : / mmHG Vent. Rate : 071 BPM Atrial Rate : 071 BPM P-R Int : 170 ms QRS Dur : 108 ms QT Int : 436 ms P-R-T Axes : 034 054 046 degrees QTc Int : 473 ms Poor data quality, interpretation may be adversely affected Normal sinus rhythm Normal ECG No previous ECGs available Confirmed by Adalberto Olguin ([id number]) on 04/01/2021 11:30:55 AM Referred By: REFERRED SELF Confirmed By:Adria Olguin
--- NOTE | 2021-04-01 13:59 | XCELERA ---
[id number]
--- NOTE | 2021-04-01 17:15 | Discharge Summary ---
Date of Service April 01, 2021 Admission HPI Per Admitting Provider The patient is a 60-year-old male with a past medical history including arthritis, hypertension, vitamin D deficiency, varicose vein of leg and morbid obesity. He reports that he went to work this morning without event, but did develop fatigue while at work, and when he returned home did have 2 diarrheal bowel movements. Shortly after that he had a syncopal episode, and his called EMS, and then had a second episode of syncope while EMS was present. During a witnessed episode by EMS, he reportedly briefly had a heart rate in the upper 30s Principal Diagnosis Gastroenteritis, Vasovagal syncope Discharge Exam Constitutional WD/WN, vitals as above + obese Eyes + anicteric sclerae Neck trachea midline, no thyromegaly Respiratory normal respiratory effort, lungs clear to auscultation Cardiovascular RRR, no murmur, no edema (except trace right ankle edema) Chest (Breasts) Chest: normal inspection of chest Gastrointestinal (Abdomen) normal bowel sounds, soft, nontender, no hepatosplenomegaly Musculoskeletal Extremities: extremities normal to inspection; no cyanosis and no clubbing Skin no rashes, warm and dry Neurologic moves all extremities and awake; no focal motor deficits Psychiatric A+Ox3, euthymic affect Lymphatic no lymphedema Discharge Data Allergies Allergy/AdvReac Type Severity Reaction Status Date / Time aspirin Allergy Severe ANAPHYLAXIS Unverified 03/31/21 21:58 NSAIDS (Non-Steroidal Allergy Severe ANAPHYLAXIS Verified 03/31/21 21:58 Anti-Inflamma Consultations 04/01/21 00:01 ED Decision to Admit Stat Ordered Studies 03/31/21 20:02 CT abd pelvis IV con only Urgent CT angio chest PE protocol Urgent CT cervical spine wo con Urgent CT head/brain wo con Urgent Abdomen/Pelvis CT 03/31/21 20:02 CT abd pelvis IV con only CLINICAL HISTORY: pain, n/v COMPARISON STUDY: None. TECHNIQUE: A dose lowering technique was utilized adhering to the principles of ALARA. CT DOSE: FINDINGS: Lower chest: Mild atelectasis/scarring at the dependent portions of bilateral lower lobes. Liver: Normal in size. Innumerable hypoattenuating lesions are seen throughout liver parenchyma, largest is measured at 2.8 cm and seen at the subdiaphragmatic aspect of the right lobe (series 10 image 99). No intrahepatic biliary dilatation demonstrated. Gallbladder: Unremarkable. Spleen: Normal in size and attenuation. Pancreas: Unremarkable. Adrenal glands: Unremarkable. Kidneys: No hydronephrosis or nephrolithiasis seen. Symmetric parenchymal enhancement is seen. 1.1 cm hypoattenuating lesion is seen within the right renal parenchyma and could represent small cyst. Bowel: The small bowel and colon are normal in course and caliber. Small hiatal hernia is seen. Sigmoid colon and rectum are fluid-filled which could be seen in diarrheal states. Appendix is nondilated. Peritoneum: There is no intraperitoneal free air or abdominal ascites. Vasculature: The abdominal aorta is normal in course and caliber. Adenopathy: None. Pelvic viscera: The bladder, and pelvic viscera are unremarkable. There is small fat-containing right inguinal hernia. Skeletal structures: Multilevel degenerative changes of the spine. There is partial fusion of anterior portion of bilateral sacroiliac joints. IMPRESSION: 1. Distal large bowel is fluid-filled which could be seen in diarrheal state. No evidence of acute inflammatory findings. Appendix is not dilated. 2. Hiatal hernia. 3. Innumerable hypoattenuating lesions throughout liver parenchyma, statistically most likely represent cysts or hemangioma. Please correlate above- mentioned findings was prior history. 4. Partial fusion of anterior bilateral sacroiliac joints. ACT 112: Negative or not required by law. The above report was generated using voice recognition software. It may contain grammatical, syntax or spelling errors. Electronically signed by: Bonita Katz DO 04/01/2021 7:[address] 03/31/21 20:02 CT OF THE CERVICAL SPINE CLINICAL HISTORY: pain fall COMPARISON STUDY: No previous studies for comparison. CT DOSE: TECHNIQUE: CT scan of the cervical spine was performed from the skull base to the thoracic inlet. Images are reviewed in the axial, sagittal, and coronal planes. IV contrast was not administered for this examination. A dose lowering technique was utilized adhering to the principles of ALARA. FINDINGS: The visualized portions of the lung apices reveal no evidence of pneumothorax. The prevertebral soft tissues are normal. No fractures or subluxations are visualized. Evaluation of the lower cervical spine is limited due to beam hardening artifact. There are multilevel degenerative changes C2-C3: Intervertebral disc space is preserved. Central canal and bilateral neural foramina are patent. C3-C4: Intervertebral disc spaces preserved. Mild diffuse bulge of the disc is seen probably associated with minimal stenosis of the central canal. Bilateral neural foramina are patent. C4-C5: Mild narrowing of intervertebral disc space is seen and associated with posterior osteophytes possibly mild central canal stenosis. Bilateral neural foramina are patent. C5-C6: Intervertebral disc space narrowing is seen with posterior and anterior osteophytes as well as subchondral sclerosis. Mild stenosis of the central canal. Bilateral neuroforamina are patent. C6-C7: Intervertebral disc space is preserved. Osseous portion of the central canal is patent. Mild hypertrophic changes of facet joints are seen. Overall evaluation is limited due to beam hardening artifact. Bilateral neuroforamina are patent. C7-T1: Intervertebral disc space is poorly seen on the sagittal reconstruction. Osseous central canal and bilateral neural foramina are patent. IMPRESSION: 1. No acute fracture or traumatic malalignment. 2. Multilevel degenerative changes as detailed above. 3. Limited study due to beam hardening artifact. ACT 112: Negative or not required by law. The above report was generated using voice recognition software. It may contain grammatical, syntax or spelling errors. Electronically signed by: Bonita Katz DO 04/01/2021 7:23 AM Chest CTA 03/31/21 20:02 CT ANGIOGRAM OF THE CHEST CLINICAL HISTORY: Syncope. Hypoxia. COMPARISON STUDY: No priors. TECHNIQUE: Following the IV administration of 118 cc of Optiray 350, CT angiogram of the chest was performed from the upper abdomen to the thoracic in let utilizing the pulmonary embolus protocol. Images are reviewed in the axial, sagittal, and coronal planes. 3-D MIPS images are created and assessed. IV contrast was administered without complication. A dose lowering technique was utilized adhering to the principles of ALARA. The examination is degraded by motion artifact. CT DOSE: 3997.87 mGy.cm FINDINGS: Thyroid: Imaged portions of the thyroid gland are normal in size and attenuation. Thoracic aorta: The thoracic aorta is normal in caliber and demonstrates standard 3-vessel arch anatomy. No dissection is seen. Pulmonary vasculature: The pulmonary trunk is normal in caliber. There are no filling defects identified in main, lobar, or segmental pulmonary branches to suggest pulmonary embolus. Heart: The heart is enlarged and without pericardial effusion. There are scattered coronary artery calcifications. Lungs and pleural spaces: Evaluation of the lung parenchyma is degraded by motion artifact. There is no airspace consolidation or pleural effusion. Dependent atelectasis is seen bilaterally. The trachea and central airways are clear. Mediastinum: There is no mediastinal lymphadenopathy. Joy: Clear. Axillae: There is no axillary lymphadenopathy. Upper abdomen: There is a small hiatal hernia. The liver appears steatotic. Scattered hepatic cysts measure up to 2.7 cm. Skeletal structures: No lytic or blastic bony lesions are seen. IMPRESSION: 1. There is no evidence of pulmonary embolus in the main, lobar, or segmental pulmonary arteries. 2. There is no airspace consolidation or pleural effusion. 3. Mild cardiomegaly. 4. Additional findings as above. ACT 112: Negative or not required by law. Electronically signed by: Sg Hayes M.D. 04/01/2021 7:[address] 03/31/21 20:02 CT SCAN OF THE BRAIN WITHOUT IV CONTRAST CLINICAL HISTORY: Syncope. Headache. COMPARISON STUDY: No priors. TECHNIQUE: Unenhanced axial CT scan of the brain is performed from the vertex to the skull base. A dose lowering technique was utilized adhering to the principles of ALARA. There is no hemorrhage, mass effect, or evidence of acute territorial ischemia by CT criteria. FINDINGS: Brain parenchyma: The brain parenchyma is normal in appearance. There is no hemorrhage, mass effect, or evidence of acute territorial ischemia by CT criteria. Abdalla-white matter differentiation is preserved. No extra-axial fluid collection is seen. Ventricles, sulci, cisterns: Normal in configuration. Intracranial vasculature: The visualized intracranial vasculature at the skull base is normal in appearance. Calvarium: Unremarkable. Sinuses and mastoids: A 1.3 cm retention cyst is noted in the left maxillary antrum. The paranasal sinuses are otherwise clear. The mastoid air cells are well pneumatized. Orbits: The bony orbits are grossly intact. IMPRESSION: There is no hemorrhage, mass effect, or evidence of acute territorial ischemia by CT criteria. ACT 112: Negative or not required by law. Electronically signed by: Sg Hayes M.D. 04/01/2021 7:07 AM Hospital Course (1) Vasovagal syncope: Secondary to abdominal cramping, diarrhea and dehydration Now resolved Ambulating without lightheadedness Orthostatics negative ECHO normal Tele with NSR entire time (2) Hypertension: held lisinopril upon admission but can restart on discharge (3) Diarrhea: likely viral gastroenteritis as his daughter and both had similar illnesses within the last week now much improved no abd pain, only two loose BMs today, nonbloody Is abby po without any N/V No fevers advised bland diet on discharge (4) Dehydration: received copious IVFs here BUN/supervisor fertilizer down from admission, lytes replaced resolved (5) Hypophosphatemia: Replaced IV and improved was secondary to GI losses and perhaps some hyperventilation with lytes shifts during blood draw (6) Obesity: BMI 36.7 advised weight loss and low carb diet, especially with fatty liver (7) Fatty liver: noted on CT scan here advised low carb diet, weight loss as above (8) Liver lesion: noted ot be cysts in liver on CT chest and innumerable lesions on CT abd/pel, most likely cysts advised f/u with PCP, consider MRI liver in future to prove cysts is UTD on colonoscopy in 2019-normal (9) DVT prophylaxis: ambulation-he was ambulating around the [place] on day of discharge without difficulty Dispo-stable for dc to home Total Time Total Time Spent Total Time Spent (In Minutes): 35 min Total Time Includes: Examination of the Patient, Discharge Planning and Medication Reconciliation Discharge Plan Discharge Items Patient Disposition: Home - Self-Care Reason For Visit: GASTROENTERITIS, VASOVAGAL SYNCOPE Discharge Diagnosis: Gastroenteritis, Vasovagal syncope Condition on Discharge: Good Activity: As commented below Lifting: Gradually increase as tolerated Bathing: No limitations Exercise/Sports: Gradually increase as tolerated Weightbearing: Full weightbearing Non-emergency contact: Primary Care Provider Call non-emergency contact if: you have any medication questions and your symptoms worsen Follow-up/Referrals: Ilaan Burgess MD [Primary Care Provider] - (Follow up within 1-2 weeks.) Diet: Low Fiber and Low Fat Diet Comment: [place] diet and then advance as tolerated to low carbohydrate Addtl Attending Provider Instructions: You were admitted after you passed out from a diarrheal illness. Your electrolytes were replaced and you were given IV fluids for hydration. This was likely a viral GI "bug." Incidentally, you were noted on your CT scan of the abdomen to have a fatty liver as well as multiple lesions that are most likely cysts in the liver. Please follow up with your PCP regarding follow up imaging of your liver. You should follow a low carbohydrate diet and work on weight loss to improve your fatty liver. Please follow up with your PCP within 1-2 weeks. Pending Studies at Discharge: No Stand-Alone Forms: My [facility] Medications and DC Order Prescriptions: Continued lisinopril 10 mg tablet 10 mg PO DAILY Qty: 30 RF: 11 Discharge Orders: Discharge Order (Routine); Ordered 04/01/21 Ordered By: Wendy Vo Admission Data Admit Date/Time: 04/01/21 00:40 Attending Provider: Wendy Vo Admit Provider: Garry Valadez Primary Care Provider: Ilana Burgess Other Providers: Garry Valadez Coding Level of Care Code 03666 OBS Care - Discharge Diagnoses Vasovagal syncope R55 Hypertension I10 Diarrhea R19.7 Dehydration E86.0 Hypophosphatemia E83.39 Obesity E66.9 Fatty liver K76.0 Liver lesion K76.9 DVT prophylaxis Z29.9
== END 2021-04-01 18:26 | disposition home or self-care (01) ==
LOC: 2N 19:30 → ED 19:30 → SUATTDRO 04-01 00:40 → 2N 04-01 01:42